=== PATIENT | male | born 1955 | race Caucasian/White ===

== ENCOUNTER 2018-04-02 07:10 | Day surgery (SDC) | payer BC ==
--- OUTSIDE RECORDS SUMMARY | 2018-04-02 07:23 | XMS REPORT ---
:1955 Author Organization eClinicalWorks Care Team Providers Name Role Phone Tima Ramos Provider Role Unavailable Allergies, Adverse Reactions, Alerts Substance Reaction Event Type codeine insomnia Drug Allergy Sulfa rash Drug Allergy Problems Problem Type Condition Code Onset Dates Condition Status Problem Erectile dysfunction F52.21 Active Problem Erectile dysfunction, unspecified N52.9 Active erectile dysfunction type Problem Allergic rhinitis J30.9 Active Assessment Recurrent right inguinal hernia K40.91 Active Problem Benign prostatic hyperplasia with N40.1 Active lower urinary tract symptoms Medications Medication Code Code Instructions Start End Status Dosage System Date Date Cialis [facility] 60113945590 5 MG Orally Camille Active 1 tablet as Once a day , 2018 Atrovent HFA [facility] [address]-42 17 MCG/ACT Active 2 puffs Inhalation three times a day Lutein-Zeaxant [facility] 52950406260 25-5 MG Orally Active as directed hin Aspir-81 [facility] 18521629982 81 MG Orally Active 1 tablet Once a day Doxazosin [facility] 45700132937 4 MG Orally Active 1 tablet Mesylate Once a day Claritin [facility] 88230827891 10 MG Orally Active 1 tablet Once a day Results No Known Results Summary Purpose eClinicalWorks Submission
--- OUTSIDE RECORDS SUMMARY | 2018-04-02 07:23 | XMS REPORT ---
:1955 Author Organization eClinicalWorks Care Team Providers Name Role Phone Tima Ramos Provider Role Unavailable Allergies No Known Allergies Problems Problem Type Condition Code Onset Dates Condition Status Problem Erectile dysfunction F52.21 Active Problem Erectile dysfunction, unspecified N52.9 Active erectile dysfunction type Problem Allergic rhinitis J30.9 Active Problem Benign prostatic hyperplasia with N40.1 Active lower urinary tract symptoms Medications No Known Medications Results No Known Results Summary Purpose eClinicalWorks Submission
--- OUTSIDE RECORDS SUMMARY | 2018-04-02 07:23 | XMS REPORT ---
:1955 Author Organization eClinicalWorks Care Team Providers Name Role Phone Perez, Na Provider Role Unavailable Allergies, Adverse Reactions, Alerts Substance Reaction Event Type codeine insomnia Drug Allergy Sulfa rash Drug Allergy Problems Problem Type Condition Code Onset Dates Condition Status Assessment Hernia, inguinal, right K40.90 Active Assessment Benign prostatic hyperplasia with N40.1 Active lower urinary tract symptoms Assessment Nocturia R35.1 Active Assessment Screening PSA (prostate specific Z12.5 Active antigen) Problem Erectile dysfunction F52.21 Active Problem Erectile dysfunction, unspecified N52.9 Active erectile dysfunction type Problem Allergic rhinitis J30.9 Active Assessment Adult general medical exam Z00.00 Active Assessment Erectile dysfunction, unspecified N52.9 Active erectile dysfunction type Problem Benign prostatic hyperplasia with N40.1 Active lower urinary tract symptoms Medications Medication Code Code Instructions Start End Status Dosage System Date Date Lutein-Zeaxant [facility][NOTE 3] 91093327776 25-5 MG Orally Active as directed hin Doxazosin [facility] 3] 23419069076 4 MG Orally Active 1 tablet Mesylate Once a day Claritin [facility] 3] 67111265486 10 MG Orally Active 1 tablet Once a day Atrovent HFA [facility][NOTE 3] [address]-25 17 MCG/ACT Active 2 puffs Inhalation three times a day Cialis [facility][NOTE 3] 96875388408 5 MG Orally Camille Active 1 tablet as Once a day 09, needed 2018-81 [facility][NOTE 3] 73543314938 81 MG Orally Active 1 tablet Once a day Results Name Result Date Reference Range Unit Abnormality Flag URINALYSIS, COMPLETE ----LEUKOCYTE TRACE [id number] NEGATIVE A ESTERASE ----NITRITE NEGATIVE 10481701 NEGATIVE N ----SPECIFIC 1.022 01278515 1.001-1.035 N GRAVITY ----PH < OR=5.0 56275206 5.0-8.0 N ----GLUCOSE NEGATIVE 83660635 NEGATIVE N ----HYALINE CAST NONE SEEN 00587389 NONE SEEN /LPF N ----BILIRUBIN NEGATIVE 34699258 NEGATIVE N ----BACTERIA NONE SEEN 55807720 NONE SEEN /HPF N ----KETONES 2+ 77568460 NEGATIVE A ----SQUAMOUS NONE SEEN 27597939 < OR=5 /HPF N EPITHELIAL CELLS ----OCCULT BLOOD NEGATIVE 41095905 NEGATIVE N ----RBC NONE SEEN 51293316 < OR=2 /HPF N ----COLOR YELLOW 56440916 YELLOW N ----PROTEIN NEGATIVE 74634460 NEGATIVE N ----APPEARANCE CLEAR 87614090 CLEAR N ----WBC 0-5 38706125 < OR=5 /HPF N CBC (INCLUDES DIFF/PLT) ----ABSOLUTE 48 33502988 15-500 cells/uL N EOSINOPHILS ----MCV 90.8 21597146 80.0-100.0 fL N ----ABSOLUTE 624 96228825 200-950 cells/uL N MONOCYTES ----HEMATOCRIT 49.3 43484026 38.5-50.0 % N ----MCHC 34.7 29231055 32.0-36.0 g/dL N ----ABSOLUTE 1720 64845422 850-3900 cells/uL N LYMPHOCYTES ----MCH 31.5 63820249 27.0-33.0 pg N ----ABSOLUTE 5560 16262725 9024-2674 cells/uL N NEUTROPHILS ----MONOCYTES 7.8 11110983 % N ----WHITE BLOOD 8.0 51323094 3.8-10.8 Thousand/u N CELL COUNT L ----LYMPHOCYTES 21.5 56173506 % N ----NEUTROPHILS 69.5 49861187 % N ----HEMOGLOBIN 17.1 99738701 13.2-17.1 g/dL N ----ABSOLUTE 48 16999150 0-200 cells/uL N BASOPHILS ----RED BLOOD CELL 5.43 15720334 4.20-5.80 Million/uL N COUNT ----BASOPHILS 0.6 38830945 % N ----MPV 9.9 17509250 7.5-12.5 fL N ----EOSINOPHILS 0.6 14480145 % N ----RDW 12.4 08007829 11.0-15.0 % N ----PLATELET COUNT 247 75359297 140-400 Thousand/u N L COMPREHENSIVE METABOLIC PANEL(CMP) ----ALBUMIN/GLOBULI 1.4 59920967 1.0-2.5 (calc) N N RATIO ----GLOBULIN 3.1 65117691 1.9-3.7 g/dL N (calc) ----ALKALINE 78 20180226 40-115 U/L N PHOSPHATASE ----BILIRUBIN, 0.8 20180226 0.2-1.2 mg/dL N TOTAL ----CHLORIDE 101 20180226 98-110 mmol/L N ----ALT 23 20180226 9-46 U/L N ----POTASSIUM 4.4 05493116 3.5-5.3 mmol/L N ----AST 24 20180226 10-35 U/L N ----SODIUM 140 79431667 135-146 mmol/L N ----BUN/CREATININE NOT APPLICABLE 20180226 6-22 (calc) RATIO ----eGFR 95 20180226 > OR=60 mL/min/1.7 [place] [address] ----CALCIUM 9.6 25264275 8.6-10.3 mg/dL N ----CARBON DIOXIDE 28 20180226 20-32 mmol/L N ----ALBUMIN 4.4 20180226 3.6-5.1 g/dL N ----PROTEIN, TOTAL 7.5 88490779 6.1-8.1 g/dL N ----GLUCOSE 94 90951818 65-99 mg/dL N ----UREA NITROGEN 15 20180226 7-25 mg/dL N (BUN) ----CREATININE 0.97 20180226 0.70-1.25 mg/dL N ----eGFR NON-AFR. 82 34225156 > OR=60 mL/min/1.7 [place] [address] LIPID PANEL WITH REFLEX TO DIRECT LDL ----NON HDL 160 46697273 <130 mg/dL H CHOLESTEROL (calc) ----LDL-CHOLESTEROL 139 62549048 mg/dL H (calc) ----CHOL/HDLC RATIO 3.8 90412887 <5.0 (calc) N ----HDL CHOLESTEROL 57 54330198 >40 mg/dL N ----TRIGLYCERIDES 98 28915159 <150 mg/dL N ----CHOLESTEROL, 217 69822826 <200 mg/dL H TOTAL PSA (Free and Total) ----PSA, % FREE 17 20180226 >25 % (calc) L ----PSA, FREE 0.4 20180226 ng/mL N ----PSA, TOTAL 2.3 58344919 < OR=4.0 ng/mL N Summary Purpose eClinicalWorks Submission
[2018-04-02] MEDS ORDERED: Ringers Lactate 1,000 ML IV ONE ×2 (07:39→13:33)
[2018-04-02] MEDS ORDERED: CEFAZOLIN/SWI 1gm 1 GM/10 ML SYR ONE (07:39)
[2018-04-02] MEDS ORDERED: BUPIVACA 0.5%/EPI 0.0005%/PF 10 ML VIAL ONE (08:23)
[2018-04-02] MEDS ORDERED: MIDAZOLAM HCL 2 MG/2 ML INJ ONE (08:40)
[2018-04-02] MEDS ORDERED: LIDOCAINE 2% MPF 5 ML VIAL ONE (08:49)
[2018-04-02] MEDS ORDERED: PROPOFOL 200 MG/20 ML VIAL IV ONE (08:49)
[2018-04-02] MEDS ORDERED: FENTANYL CITR 100 MCG/2 ML ONE (08:49)
[2018-04-02] MEDS ORDERED: ROCURONIUM 50 MG/5 ML VIAL IV ONE (08:50)
[2018-04-02] MEDS ORDERED: ONDANSETRON 4 MG/2 ML VIAL ONE (08:50)
--- NOTE | 2018-04-02 10:11 | P.OP ---
Maintenance Apprentice: Jesus Saez Preoperative diagnosis: Right Recurrent Inguinal Hernia Postoperative diagnosis: Right Recurrent Inguinal Hernia Primary procedure: Open repair of Right Recurrent Inguinal Hernia with mesh Anesthesia: GETA + Local Estimated blood loss: <10cc Specimen: Hernia Sack Findings: Large Right Recurrent Inguinal Hernia, Ext Oblique aponeurosis missing Complications: None Transferred to: Recovery Room Condition: Good
[2018-04-02] MEDS ORDERED: GLYCOPYRROLATE 0.2 MG/ML SYR ONE (10:19)
[2018-04-02] MEDS ORDERED: NEOSTIGMINE 1 MG/ML -10 ML VIAL ONE (10:19)
--- NOTE | 2018-04-02 22:11 | OP ---
Date of Procedure: 04/02/2018 Surgeon: Doyle Ramos MD, General Sales Manager: Rena Cheema. Preoperative Diagnosis: Right recurrent inguinal hernia. Postoperative Diagnosis: Right recurrent inguinal hernia. Procedure Performed: An open repair of recurrent right inguinal hernia with plug and patch repair sy stem, medium size. Anesthesia: General endotracheal plus local with 0.5% Marcaine with epinephrine. Estimated Blood Loss: Less than 10 cc. Specimens: Hernia sac. Findings: 1.Large right recurrent inguinal hernia. 2.Significant scar tissue through the Camper's fat and Shaista's fascia. External oblique aponeurosi s was obliterated essentially. Complications: None. Disposition: Transferred to recovery room in good condition. Procedure In Detail: After informed consent was obtained, the patient was brought to the operating r oom and prepped and draped in the usual sterile fashion. After adequate anesthesia was achieved, dis section was continued down through a previous right inguinal incision through the subcutaneous tissue s and down to the Camper's fat and Shaista's fascia. There was significant scarring tissue overlying this and the external oblique aponeurosis was essentially thin and obliterated. Dissection was rodrick nued down to encircle the spermatic cord and structures. A Janna drain was placed underneath the s tructure to allow for traction of the spermatic cord and structures. Dissection was continued down t o the deep inguinal ring and upon inspection, a medial defect was appreciated consistent with an altagracia rect inguinal hernia. This was completely removed off the spermatic cord and structures. The hernia sac was opened and the abdominal contents returned to the normal anatomic position, which essentiall y was preperitoneal fat. After this was returned to the normal anatomic position, the hernia sac was ligated at this level. The medium Ventralex hernia repair system was brought onto the field, [facility] ed and using a parachute-type orientation, the mesh was placed into the preperitoneal space through t he deep inguinal defect and secured using the 4 interrupted 0 PDS sutures in a circumferential fashio n with good approximation of the tissues. There was no compression or compromise of the spermatic co rd and structures and the testicle was distracted down to allow for free passage of the spermatic cor d and structures, which were found to be in good anatomic position at this time. The area was irriga doyle and the medium hernia patch was then brought on, sized appropriately, and placed along the pubic tubercle and to reconstitute the deep inguinal ring. The keyhole was positioned appropriately, and t his mesh was secured to the pubic tubercle on the distal aspect and both shelving edges on the medial and lateral aspect using a 3-0 PDS suture with good approximation, and the inguinal ring was reconst ituted at this time. The area was copiously irrigated once again and completely dried, and the sperm atic cord and structures were placed in the normal anatomic position. The Camper's fat, Shaista's fas nils, and the remnant of the external oblique aponeurosis were then closed en bloc using a 3-0 Vicryl in a running fashion with good approximation of the tissues. The subcutaneous area was irrigated onc e again and the dermal layer was closed using an interrupted 3-0 Vicryl suture and the skin was close d with a 4-0 Monocryl in running fashion. Dermabond was placed over top. The patient tolerated the procedure well without evidence of complication and was transferred to the PACU in good condition. A ll counts were correct at the end of the case. JESSIE/VIRAJ Voice ID: [id number] Report ID: [id number]
== END 2018-04-02 13:30 | disposition home or self-care (01) ==
LOC: OR 07:10
PROVIDERS: ATTEND Surgery
PROC: 0YU50JZ Supplement Right Inguinal Region with Synthetic Substitute, Open Approach (ICD-10-PCS; principal; 2018-04-02 08:30)
DX: K40.91 Unilateral inguinal hernia, without obstruction or gangrene, recurrent (principal); Z79.82 Long term (current) use of aspirin
CPT/HCPCS: 88302; J0690; J2250; J2405; J2704; J2710; J3010

== ENCOUNTER 2018-04-02 22:26 | Emergency (ER) | payer BC ==
--- OUTSIDE RECORDS SUMMARY | 2018-04-02 22:28 | XMS REPORT ---
[...] End Status Dosage System Date Date Cialis [facility] 42772280480 5 MG Orally Camille Active 1 tablet as Once a day , 2018 Atrovent HFA [facility] [address]-17 17 MCG/ACT Active 2 puffs Inhalation three times a day Lutein-Zeaxant [facility] 25182218006 25-5 MG Orally Active as directed hin Aspir-81 [facility] 55702180311 81 MG Orally Active 1 tablet Once a day Doxazosin [facility] 41417434306 4 MG Orally Active 1 tablet Mesylate Once a day Claritin [facility] 81379506162 10 MG Orally Active 1 tablet Once a day Results No Known Results Summary Purpose eClinicalWorks Submission
--- OUTSIDE RECORDS SUMMARY | 2018-04-02 22:28 | XMS REPORT ---
[...] End Status Dosage System Date Date Lutein-Zeaxant [facility] 69796330685 25-5 MG Orally Active as directed hin Doxazosin [facility] 99399058724 4 MG Orally Active 1 tablet Mesylate Once a day Claritin [facility] 11212071074 10 MG Orally Active 1 tablet Once a day Atrovent HFA [facility] [address]-89 17 MCG/ACT Active 2 puffs Inhalation three times a day Cialis [facility] 37697474892 5 MG Orally Camille Active 1 tablet as Once a day 09, needed 2018-81 [facility] 26985344840 81 MG Orally Active 1 tablet Once a day Results Name Result Date Reference Range Unit Abnormality Flag URINALYSIS, COMPLETE ----LEUKOCYTE TRACE [id number] NEGATIVE A ESTERASE ----NITRITE NEGATIVE 14079805 NEGATIVE N ----SPECIFIC 1.022 10362385 1.001-1.035 N GRAVITY ----PH < OR=5.0 09659523 5.0-8.0 N ----GLUCOSE NEGATIVE 52126905 NEGATIVE N ----HYALINE CAST NONE SEEN 38487775 NONE SEEN /LPF N ----BILIRUBIN NEGATIVE 54655563 NEGATIVE N ----BACTERIA NONE SEEN 14188465 NONE SEEN /HPF N ----KETONES 2+ 48359151 NEGATIVE A ----SQUAMOUS NONE SEEN 17484906 < OR=5 /HPF N EPITHELIAL CELLS ----OCCULT BLOOD NEGATIVE 88806594 NEGATIVE N ----RBC NONE SEEN 07087008 < OR=2 /HPF N ----COLOR YELLOW 42331221 YELLOW N ----PROTEIN NEGATIVE 62301973 NEGATIVE N ----APPEARANCE CLEAR 41683656 CLEAR N ----WBC 0-5 13326908 < OR=5 /HPF N CBC (INCLUDES DIFF/PLT) ----ABSOLUTE 48 90118418 15-500 cells/uL N EOSINOPHILS ----MCV 90.8 90351607 80.0-100.0 fL N ----ABSOLUTE 624 54307530 200-950 cells/uL N MONOCYTES ----HEMATOCRIT 49.3 45967148 38.5-50.0 % N ----MCHC 34.7 85298536 32.0-36.0 g/dL N ----ABSOLUTE 1720 62854436 850-3900 cells/uL N LYMPHOCYTES ----MCH 31.5 66733219 27.0-33.0 pg N ----ABSOLUTE 5560 86529971 2486-0470 cells/uL N NEUTROPHILS ----MONOCYTES 7.8 66568820 % N ----WHITE BLOOD 8.0 96339243 3.8-10.8 Thousand/u N CELL COUNT L ----LYMPHOCYTES 21.5 30141320 % N ----NEUTROPHILS 69.5 22784832 % N ----HEMOGLOBIN 17.1 91701023 13.2-17.1 g/dL N ----ABSOLUTE 48 44730139 0-200 cells/uL N BASOPHILS ----RED BLOOD CELL 5.43 25966806 4.20-5.80 Million/uL N COUNT ----BASOPHILS 0.6 03656078 % N ----MPV 9.9 71352585 7.5-12.5 fL N ----EOSINOPHILS 0.6 03667292 % N ----RDW 12.4 91589695 11.0-15.0 % N ----PLATELET COUNT 247 03889559 140-400 Thousand/u N L COMPREHENSIVE METABOLIC PANEL(CMP) ----ALBUMIN/GLOBULI 1.4 47278552 1.0-2.5 (calc) N N RATIO ----GLOBULIN 3.1 77472231 1.9-3.7 g/dL N (calc) ----ALKALINE 78 20180226 40-115 U/L N PHOSPHATASE ----BILIRUBIN, 0.8 20180226 0.2-1.2 mg/dL N TOTAL ----CHLORIDE 101 20180226 98-110 mmol/L N ----ALT 23 20180226 9-46 U/L N ----POTASSIUM 4.4 12080105 3.5-5.3 mmol/L N ----AST 24 20180226 10-35 U/L N ----SODIUM 140 88348572 135-146 mmol/L N ----BUN/CREATININE NOT APPLICABLE 20180226 6-22 (calc) RATIO ----eGFR 95 20180226 > OR=60 mL/min/1.7 [place] [address] ----CALCIUM 9.6 66620856 8.6-10.3 mg/dL N ----CARBON DIOXIDE 28 20180226 20-32 mmol/L N ----ALBUMIN 4.4 20180226 3.6-5.1 g/dL N ----PROTEIN, TOTAL 7.5 64892360 6.1-8.1 g/dL N ----GLUCOSE 94 27277838 65-99 mg/dL N ----UREA NITROGEN 15 20180226 7-25 mg/dL N (BUN) ----CREATININE 0.97 20180226 0.70-1.25 mg/dL N ----eGFR NON-AFR. 82 64348177 > OR=60 mL/min/1.7 [place] [address] LIPID PANEL WITH REFLEX TO DIRECT LDL ----NON HDL 160 61765889 <130 mg/dL H CHOLESTEROL (calc) ----LDL-CHOLESTEROL 139 44357943 mg/dL H (calc) ----CHOL/HDLC RATIO 3.8 90875272 <5.0 (calc) N ----HDL CHOLESTEROL 57 07496596 >40 mg/dL N ----TRIGLYCERIDES 98 61634213 <150 mg/dL N ----CHOLESTEROL, 217 62269030 <200 mg/dL H TOTAL PSA (Free and Total) ----PSA, % FREE 17 20180226 >25 % (calc) L ----PSA, FREE 0.4 20180226 ng/mL N ----PSA, TOTAL 2.3 53041449 < OR=4.0 ng/mL N Summary Purpose eClinicalWorks Submission
[2018-04-02 23:48] LABS: Urine Blood TRACE (NEG); Urine Glucose NEGATIVE (NEG); Urine Protein NEGATIVE (NEG); Urine Specific Gravity 1.015 (1.005-1.030); Urine pH 6.5 (5.0-7.0)
--- NOTE | 2018-04-03 00:04 | EDPHYS ---
Physician Documentation [facility] Name: Winston Ca Age: 62 yrs Sex: Male : 1955 Arrival Date: 04/02/2018 Time: 22:30 Bed 3 Private MD: Kiah Perez ED Physician Santiago Xiao HPI: 04/02 23:10 This 62 yrs old Male presents to ER via Ambulatory with complaints of Urinary pm1 Retention. 23:10 The patient presents with urinary symptoms, retention. Onset: The symptoms/episode pm1 began/occurred today. Modifying factors: The symptoms are alleviated by nothing, the symptoms are aggravated by nothing. Associated signs and symptoms: Pertinent positives: abdominal pain, Pertinent negatives: constipation, diarrhea, dysuria, fever, nausea, vomiting. Severity of symptoms: in the emergency department the symptoms are actually worse. The patient has not experienced similar symptoms in the past. The patient has been recently seen by a physician: Dr. Ramos. Patient with right inguinal hernia repair. Patient urinated a small amount prior to discharge from day surgery but has not urinated at home. Historical: - Allergies: 22:55 Sulfa (Sulfonamide Antibiotics); bb 22:55 Codeine; bb - Home Meds: 22:55 doxazosin 4 mg oral tab 1 tab once daily [Active]; bb - PMHx: 22:55 Hernia; bb - PSHx: 22:55 Hernia repair; bb - Immunization history:: Adult Immunizations up to date, Flu vaccine is up to date. - Social history:: Smoking status: Patient/guardian denies using tobacco. - Ebola Screening: : No symptoms or risks identified at this time. ROS: 23:10 Constitutional: Negative for fever, chills, and weight loss, Eyes: Negative for injury, pm1 pain, redness, and discharge, ENT: Negative for injury, pain, and discharge, Neck: Negative for injury, pain, and swelling, Cardiovascular: Negative for chest pain, palpitations, and edema, Respiratory: Negative for shortness of breath, cough, wheezing, and pleuritic chest pain, Abdomen/GI: Negative for abdominal pain, nausea, vomiting, diarrhea, and constipation, Back: Negative for injury and pain. 23:10 MS/Extremity: Negative for injury and deformity, Skin: Negative for injury, rash, and discoloration, Neuro: Negative for headache, weakness, numbness, tingling, and seizure. 23:10 : Positive for difficulty urinating, Negative for flank pain, testicular pain Exam: 23:10 Constitutional: This is a well developed, well nourished patient who is awake, alert, pm1 and in no acute distress. Head/Face: Normocephalic, atraumatic. Eyes: Pupils equal round and reactive to light, extra-ocular motions intact. Lids and lashes normal. Conjunctiva and sclera are non-icteric and not injected. Cornea within normal limits. Periorbital areas with no swelling, redness, or edema. ENT: Nares patent. No nasal discharge, no septal abnormalities noted. Tympanic membranes are normal and external auditory canals are clear. Oropharynx with no redness, swelling, or masses, exudates, or evidence of obstruction, uvula midline. Mucous membranes moist. Neck: Trachea midline, no thyromegaly or masses palpated, and no cervical lymphadenopathy. Supple, full range of motion without nuchal rigidity, or vertebral point tenderness. No Meningismus. Chest/axilla: Normal chest wall appearance and motion. Nontender with no deformity. No lesions are appreciated. Cardiovascular: Regular rate and rhythm with a normal S1 and S2. No gallops, murmurs, or rubs. Normal PMI, no JVD. No pulse deficits. Respiratory: Lungs have equal breath sounds bilaterally, clear to auscultation and percussion. No rales, rhonchi or wheezes noted. No increased work of breathing, no retractions or nasal flaring. Back: No spinal tenderness. No costovertebral tenderness. Full range of motion. Skin: Warm, dry with normal turgor. Normal color with no rashes, no lesions, and no evidence of cellulitis. MS/ Extremity: Pulses equal, no cyanosis. Neurovascular intact. Full, normal range of motion. 23:10 Abdomen/GI: Inspection: right lower quadrant surgical scar without dehiscence, discharge, redness or warmth, Bowel sounds: normal, Palpation: abdomen is soft and non-tender. 23:10 Neuro: Orientation: is normal, Motor: is normal. Vital Signs: 22:55 BP 147 / 87; Pulse 93; Resp 16 S; Temp 99.4(O); Pulse Ox 97% on R/A; Weight 81.65 kg bb (R); Height 5 ft. 9 in. (175.26 cm) (R); Pain 6/10; 04/03 00:10 BP 122 / 71; Pulse 76; Resp 17; Temp 98.9; Pulse Ox 99% ; Pain 0/10; tl1 04/02 22:55 Body Mass Index 26.58 (81.65 kg, 175.26 cm) bb MDM: 04/02 23:06 Patient medically screened. pm1 23:57 Data reviewed: vital signs. Data interpreted: Pulse oximetry: on room air is 97 %. pm1 Interpretation: normal. Counseling: I had a detailed discussion with the patient and/or guardian regarding: the historical points, exam findings, and any diagnostic results supporting the discharge/admit diagnosis, lab results, the need for outpatient follow up, to return to the emergency department if symptoms worsen or persist or if there are any questions or concerns that arise at home, May return to ER to remove levi tomorrow evening. 04/02 23:16 Order name: Urine Dipstick--Ancillary (enter results); Complete Time: 23:57 oe 04/02 23:10 Order name: Levi; Complete Time: 00:06 tl1 04/02 23:10 Order name: Levi Leg Bag; Complete Time: 00:06 tl1 Administered Medications: No medications were administered Disposition: 04/03 06:18 Co-signature as Attending Physician, Santiago Xiao MD I agree with the assessment and tw4 plan of care. Disposition: 04/03/18 00:03 Discharged to Home. Impression: Retention of urine. - Condition is Stable. - Discharge Instructions: Levi Catheter Care, Adult, Acute Urinary Retention, Male. - Medication Reconciliation Form, Thank You Letter, Antibiotic Education, Prescription Opioid Use form. - Follow up: Emergency Department; When: As needed; Reason: Worsening of condition. Follow up: Private Physician; When: 1 - 2 days; Reason: Recheck today's complaints, Continuance of care, Re-evaluation by your physician. - Problem is new. - Symptoms have improved. Signatures: Dispatcher [employer] Leigh Ann Cunningham RN RN bb Sherrell Bucio RN RN tl1 Suman Rosado, HOUSING GRANT ANALYST HOUSING GRANT ANALYST pm1 Santiago Xiao MD MD tw4 Corrections: (The following items were deleted from the chart) 00:33 00:03 04/03/2018 00:03 Discharged to Home. Impression: Retention of urine. Condition is tl1 Stable. Forms are Medication Reconciliation Form, Thank You Letter, Antibiotic Education, Prescription Opioid Use. Follow up: Emergency Department; When: As needed; Reason: Worsening of condition. Follow up: Private Physician; When: 1 - 2 days; Reason: Recheck today's complaints, Continuance of care, Re-evaluation by your physician. Problem is new. Symptoms have improved. pm1
--- NOTE | 2018-04-03 00:04 | ER ---
Nurse's Notes [facility] Name: Winston Ca Age: 62 yrs Sex: Male : 1955 Arrival Date: 04/02/2018 Time: 22:30 Bed 3 Private MD: Kiah Perez Diagnosis: Retention of urine Presentation: 04/02 22:53 Presenting complaint: Patient states: he had a hernia repair this morning and now he is bb unable to urinate. Transition of care: patient was not received from another setting of care. Onset of symptoms was April 02, 2018. Risk Assessment: Do you want to hurt yourself or someone else? Patient reports no desire to harm self or others. Initial Sepsis Screen: Does the patient meet any 2 criteria? No. Patient's initial sepsis screen is negative. Does the patient have a suspected source of infection? No. Patient's initial sepsis screen is negative. Care prior to arrival: None. 22:53 Method Of Arrival: Ambulatory bb 22:53 Acuity: GAYATHRI 4 bb Historical: - Allergies: 22:55 Sulfa (Sulfonamide Antibiotics); bb 22:55 Codeine; bb - Home Meds: 22:55 doxazosin 4 mg oral tab 1 tab once daily [Active]; bb - PMHx: 22:55 Hernia; bb - PSHx: 22:55 Hernia repair; bb - Immunization history:: Adult Immunizations up to date, Flu vaccine is up to date. - Social history:: Smoking status: Patient/guardian denies using tobacco. - Ebola Screening: : No symptoms or risks identified at this time. Screenin:13 Abuse screen: Denies threats or abuse. Denies injuries from another. Nutritional tl1 screening: No deficits noted. Tuberculosis screening: No symptoms or risk factors identified. Fall Risk None identified. Assessment: 23:11 General: Appears uncomfortable, Behavior is calm, cooperative, appropriate for age. tl1 Pain: Complains of pain in suprapubic area Pain currently is 8 out of 10 on a pain scale. Neuro: Level of Consciousness is awake, alert, obeys commands, Oriented to person, place, time, situation. Cardiovascular: Denies chest pain. Respiratory: Airway is patent Trachea midline Respiratory effort is even, unlabored, Breath sounds are clear bilaterally. GI: Abdomen is distended, Abdomen is tender to palpation in suprapubic area Reports lower abdominal pain. : Reports inability to void, since 0900 this morning. EENT: No signs and/or symptoms were reported regarding the EENT system. Derm: No signs and/or symptoms reported regarding the dermatologic system. Musculoskeletal: No signs and/or symptoms reported regarding the musculoskeletal system. 04/03 00:21 Reassessment: Patient and/or family updated on plan of care and expected duration. Pain tl1 level reassessed. Patient is alert, oriented x 3, equal unlabored respirations, skin warm/dry/pink. Patient states feeling better. Patient states symptoms have improved. Vital Signs: 04/02 22:55 BP 147 / 87; Pulse 93; Resp 16 S; Temp 99.4(O); Pulse Ox 97% on R/A; Weight 81.65 kg bb (R); Height 5 ft. 9 in. (175.26 cm) (R); Pain 6/10; 04/03 00:10 BP 122 / 71; Pulse 76; Resp 17; Temp 98.9; Pulse Ox 99% ; Pain 0/10; tl1 04/02 22:55 Body Mass Index 26.58 (81.65 kg, 175.26 cm) bb ED Course: 04/02 22:30 Patient arrived in ED. es 22:31 Kiah Perez MD is Private Physician. es 22:54 Triage completed. bb 22:55 Arm band placed on Patient placed in an exam room, on a stretcher, on pulse oximetry. bb Family accompanied patient. 22:55 Patient has correct armband on for positive identification. Placed in gown. Bed in low tl1 position. Side rails up X 1. 23:05 Suman Rosado NP is PHCP. pm1 23:05 Santiago Xiao MD is Attending Physician. pm1 23:11 Sherrell Bucio, PATSY is Primary Nurse. tl1 23:11 No provider procedures requiring assistance completed. Levi cath inserted, using tl1 sterile technique, 18 Fr., by oh, balloon inflated, to gravity drainage, urine specimen collected. returned clear yellow urine. Patient tolerated well. Patient did not have IV access during this emergency room visit. 04/03 00:20 converted drainage bag to leg bag prior to disposition. tl1 Administered Medications: No medications were administered Output: 00:22 Urine: 1250ml (Levi); Total: 1250ml. tl1 Outcome: 00:03 Discharge ordered by . pm1 00:22 Discharged to home ambulatory, with family. tl1 00:22 Condition: improved 00:22 Discharge instructions given to patient, family, Instructed on discharge instructions, follow up and referral plans. levi and leg bag instructions 00:33 Patient left the ED. tl1 Signatures: Yanet Delcid Brenda, RN RN bb Sherrell Bucio RN RN tl1 Suman Rosado, SHIRA [employer] pm1
== END 2018-04-03 00:33 | disposition home or self-care (01) ==
LOC: ER 22:26
DX: R33.9 Retention of urine, unspecified (principal); Z88.2 Allergy status to sulfonamides; Z88.5 Allergy status to narcotic agent; Z98.890 Other specified postprocedural states
CPT/HCPCS: 51702; 81003; 99284